=== PATIENT | female | born 1965 | race African-American/Black ===

== ENCOUNTER 2024-03-18 15:42 | Emergency (ER) | payer OTHER ==
[2024-03-18 15:50] VITALS: BP 151/74; PULSE 63; RESP 16; TEMP 97.7; BMI 26.5
[2024-03-18] MEDS ORDERED: morphine SULFATE 4 MG/ML VIAL ONE (17:07)
[2024-03-18] MEDS ORDERED: MAG HYDROX/AL HYDROX/SIMETH 30 ML UNIT-DOSE CUP ONE (17:07)
[2024-03-18] MEDS ORDERED: ONDANSETRON 4 MG/2 ML VIAL ONE (17:07)
[2024-03-18] MEDS ORDERED: FAMOTIDINE 20 MG/50 ML IVPB 20 MG/50 ML MG IVPB ONE (17:08)
[2024-03-18] MEDS: LACTATED RINGERS SOLUTION 1000 ML INFUS.BAG IV ONE (17:14)
[2024-03-18 17:15] LABS: BASO % 0.4 % (0-2.0); EOS % 1.2 % (0-4.5); HEMATOCRIT 39.7 % (32.4-45.2); HEMOGLOBIN 13.6 GM/dL (10.7-15.3); LYMPH % 14.3 % (8-40); MCH 30.8 pg (25.7-33.7); MCHC 34.3 g/dl (32.0-36.0); MEAN CELL VOLUME 89.8 fl (80-96); MEAN PLT VOLUME 7.3 fl (7.5-11.1); MONO % 3.2 % (3.8-10.2); NEUT % 80.9 % (42.8-82.8); PLATELET COUNT 280 10^3/uL (134-434); RBC 4.42 M/mm3 (3.60-5.2); RDW 13.7 % (11.6-15.6); WHITE BLOOD COUNT 6.4 K/mm3 (4.0-10.0)
[2024-03-18] MEDS: morphine CARPU-JECT 4 MG/1 ML DISP.SYRIN IVPUSH ONE (17:16)
[2024-03-18] MEDS: ONDANSETRON 4 MG/2 ML VIAL IVPUSH ONE (17:17)
[2024-03-18] MEDS: MAG HYDROX/AL HYDROX/SIMETH 30 ML UNIT-DOSE CUP PO ONE (17:17)
[2024-03-18] MEDS: FAMOTIDINE 20 MG/50 ML IVPB 20 MG/50 ML MG IVPB ONE (17:17)
[2024-03-18 17:22] LABS: INR 0.97 (0.83-1.09); PROTHROMBIN TIME (PATIENT) 11.2 SEC (9.7-13.0)
[2024-03-18 17:25] LABS: ACTIVATED PTT 33.1 SECONDS (25.2-36.5)
[2024-03-18 17:38] LABS: MAGNESIUM 2.2 mg/dL (1.8-2.4)
[2024-03-18 17:42] LABS: ALBUMIN 4.1 g/dl (3.4-5.0); BLOOD UREA NITROGEN 13.9 mg/dL (7-18); CALCIUM 9.4 mg/dL (8.5-10.1)
[2024-03-18 17:46] LABS: CREATININE 0.9 mg/dL (0.55-1.3)
[2024-03-18 17:47] LABS: BILIRUBIN,TOTAL 0.2 mg/dL (0.2-1)
[2024-03-18 18:34] LABS: EPI CELLS 13 /uL (0-25.1); HYALINE CASTS 1 /uL (0-3.1); URINE APPEARANCE CLEAR; URINE BACTERIA 108 /uL (0-1359); URINE BILIRUBIN NEGATIVE (NEGATIVE); URINE COLOR YELLOW; URINE GLUCOSE (UA) NEGATIVE (NEGATIVE); URINE KETONE NEGATIVE (NEGATIVE); URINE LEUK ESTERASE NEGATIVE (NEGATIVE); URINE NITRITE NEGATIVE (NEGATIVE); URINE PROTEIN TRACE (NEGATIVE); URINE UROBILINOGEN 0.2 mg/dL (0.2-1.0); URINE WBC 18 /uL (0-25.8)
[2024-03-18 18:51] LABS: URINE RBC 266.5 /uL (0-23.9)
[2024-03-18] MEDS ORDERED: KETOROLAC TROMETHAMINE 15 MG/ML VIAL ONE (19:40)
[2024-03-18] MEDS ORDERED: TAMSULOSIN HCL 0.4 MG CAP ONE (19:40)
[2024-03-18] MEDS: TAMSULOSIN HCL 0.4 MG CAP PO ONE (19:47)
[2024-03-18] MEDS: KETOROLAC TROMETHAMINE 15 MG/ML VIAL IVPUSH ONE (19:47)
== END 2024-03-18 20:43 | disposition home or self-care (01) ==
LOC: JER 15:42
PROC: 3E033GC Introduction of Other Therapeutic Substance into Peripheral Vein, Percutaneous Approach (ICD-10-PCS; principal; 2024-03-18)
PROC: 3E0333Z Introduction of Anti-inflammatory into Peripheral Vein, Percutaneous Approach (ICD-10-PCS; 2024-03-18)
PROC: 3E033NZ Introduction of Analgesics, Hypnotics, Sedatives into Peripheral Vein, Percutaneous Approach (ICD-10-PCS; 2024-03-18)
DX: N13.2 Hydronephrosis with renal and ureteral calculous obstruction (principal)
CPT/HCPCS: 36415; 71045-TC-FY; 74177-TC; 80053; 81003; 83605; 83690; 83735; 84484; 85025; 85610; 85730; 93005; 93010; 99285-25; Q9967